=== PATIENT | female | born 1965 | race Caucasian/White ===

== ENCOUNTER 2021-02-21 08:03 | Inpatient (IN) | payer MEDICARE, MEDICAID ==
[2021-02-14 15:26] LABS: BASOPHILS % (AUTO) 0.4 % (0-1); EOSINOPHILS # (AUTO) 0.1 X10'3 (0-0.9); EOSINOPHILS % (AUTO) 1.7 % (0-6); LYMPHOCYTES # (AUTO) 2.4 X10'3 (1.1-4.8); LYMPHOCYTES % (AUTO) 29.6 % (21-51); MEAN CORPUSCULAR HEMOGLOBIN 28.5 PG (27.0-31.0); MEAN CORPUSCULAR HGB CONC 32.8 g/dL (33.0-36.5); MEAN CORPUSCULAR VOLUME 86.8 FL (78-98); MEAN PLATELET VOLUME 8.2 FL (7.4-10.4); MONOCYTES # (AUTO) 0.3 X10'3 (0-0.9); MONOCYTES % (AUTO) 3.8 % (2-12); NEUTROPHILS # (AUTO) 5.3 X10'3 (1.8-7.7); NEUTROPHILS % (AUTO) 64.5 % (42-75); PRE OP HEMATOCRIT 41.3 % (35.0-45.0); PRE OP HEMOGLOBIN 13.6 g/dL (12.0-16.0); PRE OP PLATELET COUNT 245 X10'3 (140-440); RED BLOOD COUNT 4.76 X10'6 (4.20-5.60); RED CELL DISTRIBUTION WIDTH 15.2 % (11.5-14.5)
[2021-02-14 15:36] LABS: CLARITY,URINE SLIGHTLY CLOUDY (Clear); GLUCOSE, URINE NEGATIVE (Neg); KETONES,URINE NEGATIVE (Neg); LEUKOCYTE ESTERASE ,URINE NEGATIVE (Neg); NITRITES, URINE NEGATIVE (Neg); OCCULT BLOOD,URINE TRACE-LYSED (Neg); PH,URINE 5.5 (4.8-8.0); PROTEIN,URINE TRACE mg/dl (Neg); UROBILINOGEN,URINE 0.2 E.U/dL (0.2-1.0)
[2021-02-14 15:39] LABS: COLOR,URINE DARK YELLOW (Yellow); UA COLLECTION TYPE CLN CATCH MIDSTREAM
[2021-02-14 15:45] LABS: BACTERIA,URINE FEW /HPF (Neg); HYALINE CASTS >30 /LPF (NEGATIVE); MUCUS STRANDS MANY /LPF (Neg); RBC,URINE 0-2 /HPF (0-2); SQUAMOUS EPITHELIAL CELL,UR MODERATE /LPF (FEW); WBC,URINE 0-4 /HPF (0-4)
[2021-02-14 16:08] LABS: ALBUMIN 3.6 G/DL (3.4-5.0); ALBUMIN/GLOBULIN RATIO 0.8 (1.1-1.5); ALKALINE PHOSPHATASE 100 IU/L (46-116); BLOOD UREA NITROGEN 26 MG/DL (7-18); BUN/CREATININE RATIO 24.8 (6.6-38.0); CALCIUM 9.4 MG/DL (8.5-10.1); CHLORIDE 105 MMOL/L (99-107); CREATININE 1.05 MG/DL (0.40-0.90); PRE OP ALT 41 U/L (30-65); PRE OP ANION GAP 10 (8-16); PRE OP AST 24 U/L (10-37); PRE OP BILIRUB, TOTAL 0.3 MG/DL (0.0-1.0); PRE OP GLUCOSE 119 MG/DL (70-104); PRE OP POTASSIUM 3.9 MMOL/L (3.4-5.1); PRE OP SODIUM 145 MMOL/L (135-145); TOTAL CARBON DIOXIDE 30.4 MMOL/L (24-32); eGFR 55 ML/MIN
[~2021-02-21] VITALS: Ht 160 cm; Wt 90.7 kg
[2021-02-21] VITALS (18 sets, daily range): BP systolic 82–138; BP diastolic 43–85
[~2021-02-21 08:03] MED LIST: ACET-1131 PO; ASPI-1475 PO; BACL20TA PO; CLINDAMYCIN/D5W 900mg/50ml 50 ML IV ONE; DOCUMENT DATE & TIME OF BETA-BLOCKER PO ONE; FLUT16SP2 BOTHNARES; METO50TA17 PO; VITAMIN D3 PO; [UNRECOGNIZED DRUG - OTHER] PO; albuterol 2.5 MG/3 ML nebule NEB ONE; cefazolin/dext.iso 2gm/100ml 100 ML IV ONE; famotidine 20mg tablet PO ONE; ringers solution, lacted 1,000 ML IV SCH; vancomycin 1,500 MG in NS 300ml IV soln IV ONE
[2021-02-21] MEDS ORDERED: fentaNYL/PF 50MCG/1 ML 2ML syringe IV ONE (08:50)
[2021-02-21] MEDS ORDERED: ringers solution, lacted 1,000 ML IV SCH (08:50)
[2021-02-21] MEDS ORDERED: meperidine/PF 25mg/ml syringe IV PRN ×3 (08:50)
[2021-02-21] MEDS ORDERED: proCHLORperazine 10 MG/2 ml inj IV PRN (08:50)
[2021-02-21] MEDS ORDERED: ondansetron/PF 4mg/2ml inj IV PRN (08:50)
[2021-02-21] MEDS ORDERED: bacitracin 15gm ointment TP ONE (09:48)
[2021-02-21] MEDS ORDERED: MIDAZolam 1 MG/ML 5ML VIAL ONE (10:02)
[2021-02-21] MEDS ORDERED: fentaNYL /PF 50mcg/ml 5ml ampule ONE (10:02)
[2021-02-21] MEDS ORDERED: propofol inj 20 ML IV ONE (10:05)
[2021-02-21] MEDS ORDERED: ROPIVAcaine 0.5% (5mg/ml) 30ml vial ONE (10:05)
[2021-02-21] MEDS ORDERED: dexamethasone sod phosphate 4mg/ml inj. ONE (10:08)
[2021-02-21] MEDS ORDERED: LIDOcaine 1%/PF 5ML 10 MG/ML VIAL ONE (10:27)
[2021-02-21] MEDS ORDERED: sevoflurane 250ml liquid IH ONE (10:27)
[2021-02-21] MEDS ORDERED: BUPIVAcaine/PF 7.5mg/ml (0.75%) 10ml vial ONE (11:17)
[2021-02-21] MEDS ORDERED: ROPIVAcaine 0.2% (10 MG/5 ML) BOLUS INJECTION POPLITEAL PRN (12:05)
[2021-02-21] MEDS ORDERED: ondansetron/PF 4mg/2ml inj ONE (15:09)
[2021-02-21] MEDS ORDERED: meperidine/PF 25mg/ml syringe ONE (15:10)
[2021-02-21] MEDS ORDERED: acetaminophen 1,000mg/100ml IV 100 ML IV ONE (15:11)
[2021-02-21] MEDS ORDERED: oxyCODONE/APAP 5-325mg tablet PO PRN (15:25)
[2021-02-21] MEDS ORDERED: acetaminophen 325mg tablet PO PRN (15:55)
--- NOTE | 2021-02-21 16:18 | NUR ---
Received from OR via ORTHO BED WITH MARGUERITE , accompanied by Anesthesiologist ROSALIND and report given by Anesthesiolgist. PATIENT WITH SPLINT TO RIGHT LE THAT IS CDI. TOES PWD WITH + CAP REFILL ON TOES. NO DRAINAGE PRESENT. GATCHED FOOT OF BED UPON ARRIVAL AND DONNED ON Q PAIN SYSTEM TO NERVE BLOCK SITE ON RIGHT LE. 20G PIV IN LEFT UE RUNNING LR AT 100. ECKERT CATHETER PRESENT WITH 8FRENCH CATHETER IN. I SECURED LEG CHRISTINA FOR FC SYSTEM. 10L MASK ON WITH 100% SATURATIONS. Addendum: 02/21/21 at 1636 by Thuan Ortega RN, RN Amended: Links added.
[2021-02-21] MEDS: ROPIVAcaine 0.2%/PF PUMP/bolus 545 ML POPLITEAL SCH (16:37)
[2021-02-21] MEDS ORDERED: potassium Cl 20 mEq SR tablet PO PRN ×2 (16:55)
[2021-02-21] MEDS ORDERED: magnesium Cl slow-release 64mg tablet PO PRN (16:55)
[2021-02-21] MEDS ORDERED: potassium Cl 40MEQ/1/2NS 520ml 520 ML IV PRN (16:55)
[2021-02-21] MEDS ORDERED: magnesium 4gm in 100ml NS 100 ML IV PRN (16:55)
--- NOTE | 2021-02-21 17:19 | NUR ---
Patient in room PAS IN 900. I have received report from Thuan GUTIERREZ and had the opportunity to ask questions and assume patient care.
--- NOTE | 2021-02-21 17:28 | NUR ---
PATIENT HAS MET ALL CRITERIA FOR TRANSFER TO THE SURGICAL/[facility]/PCU/ORTHO/ICU FLOOR. VSS. DRESSINGS INTACT. BED LOW, CALL LIGHT PRESENT AND 3 RAILS UP. RN PRESENT TO ACCEPT CARE OF PATIENT AND REPORT HAS BEEN CALLED. ALL QUESTIONS ANSWERED TO ACCEPTING RN. ENCOURAGED BRENDA LÓPEZ TO USE TABS ALARM. CONFIRMED WITH JORDY GUTIERREZ THAT THERE ARE NO PATIENT BELONGINGS OVER ON PAS UNIT. BRENDA LÓPEZ PRESENT TO ASSESS PATIENT- SPLINT TO RIGH TLE STILL CDI. _ CAP REFILL TO TOES. NO DRAINAGE PRESENT ON DRESSING. ECKERT CATHETER PRESENT WITH CLEAR YELLOW DRAINAGE. APPROX 250CC FROM RR IN [facility] FOR DURATION IN RR. PATIENT. Addendum: 02/21/21 at 1744 by Thuan Santiago - BRENDA RN Amended: Links added.
[2021-02-21] MEDS ORDERED: normal saline 1000ml 1,000 ML IVB ONE (18:20)
--- NOTE | 2021-02-21 18:30 | NUR ---
Problems reprioritized. Patient report given, questions answered & plan of care reviewed with Ruba GUTIERREZ.
--- NOTE | 2021-02-21 18:30 | NUR ---
Patient in room ORTHO 4013. I have received report from BRENDA Valderrama and had the opportunity to ask questions and assume patient care.
[2021-02-21] MEDS: normal saline 1000ml 1,000 ML IV SCH (19:22)
[2021-02-21] MEDS: K and/or MAG REPLACEMENT MC SCH (20:00)
[2021-02-21] MEDS: baclofen 10mg tablet PO SCH (20:06)
[2021-02-21] MEDS: metoprolol tartrate 50mg tablet PO SCH (20:07)
--- NOTE | 2021-02-21 21:34 | NUR ---
Call out to Dr. Eldridge regarding the antibiotic orders, need to change them to other antibiotic choice per RX.
[2021-02-21] MEDS: CLINDAMYCIN/D5W 900mg/50ml 50 ML IV SCH (22:08)
[2021-02-22] VITALS (7 sets, daily range): BP systolic 84–145; BP diastolic 36–70
[2021-02-22] MEDS: normal saline 1000ml 1,000 ML IV SCH ×2 (05:43→15:36)
[2021-02-22] MEDS: CLINDAMYCIN/D5W 900mg/50ml 50 ML IV SCH (05:44)
--- NOTE | 2021-02-22 06:26 | NUR ---
Problems reprioritized. Patient report given, questions answered & plan of care reviewed with BRENDA Zamora.
[2021-02-22 07:25] LABS: BASOPHILS % (AUTO) 0 % (0-1); EOSINOPHILS % (AUTO) 0 % (0-6); HEMATOCRIT 33.4 % (35.0-45.0); HEMOGLOBIN 10.8 g/dl (12.0-16.0); LYMPHOCYTES # (AUTO) 1.3 X10'3 (1.1-4.8); LYMPHOCYTES % (AUTO) 9.4 % (21-51); MEAN CORPUSCULAR HEMOGLOBIN 28.4 PG (27.0-31.0); MEAN CORPUSCULAR HGB CONC 32.2 g/dL (33.0-36.5); MEAN CORPUSCULAR VOLUME 88.2 FL (78-98); MEAN PLATELET VOLUME 8.7 FL (7.4-10.4); MONOCYTES # (AUTO) 0.8 X10'3 (0-0.9); MONOCYTES % (AUTO) 5.7 % (2-12); NEUTROPHILS # (AUTO) 11.3 X10'3 (1.8-7.7); NEUTROPHILS % (AUTO) 84.9 % (42-75); PLATELET COUNT 181 X10'3 (140-440); RED BLOOD COUNT 3.78 X10'6 (4.20-5.60); RED CELL DISTRIBUTION WIDTH 15.2 % (11.5-14.5); WHITE BLOOD COUNT 13.3 X10'3 (4.5-11.0)
[2021-02-22] MEDS: metoprolol tartrate 50mg tablet PO SCH (07:38)
[2021-02-22] MEDS: fluticasone nasal spray 16GM bottle NS SCH (07:38)
[2021-02-22] MEDS: baclofen 10mg tablet PO SCH ×2 (07:38→20:24)
[2021-02-22] MEDS: aspirin 81mg tablet.DR PO SCH (07:38)
[2021-02-22 07:58] LABS: ALANINE AMINOTRANSFERASE 24 U/L (12-78); ALBUMIN 2.6 G/DL (3.4-5.0); ALBUMIN/GLOBULIN RATIO 0.8 (1.1-1.5); ALKALINE PHOSPHATASE 66 IU/L (46-116); ANION GAP 6 (8-16); ASPARTATE AMINO TRANSFERASE 32 U/L (10-37); BILIRUBIN,TOTAL 0.3 MG/DL (0.1-1.0); BLOOD UREA NITROGEN 12 MG/DL (7-18); BUN/CREATININE RATIO 17.1 (6.6-38.0); CALCIUM 7.9 MG/DL (8.5-10.1); CHLORIDE 109 MMOL/L (99-107); GLUCOSE 134 MG/DL (70-104); MAGNESIUM 1.8 MG/DL (1.5-2.4); POTASSIUM 4.2 MMOL/L (3.5-5.1); SODIUM 143 MMOL/L (135-145); TOTAL CARBON DIOXIDE 28.2 MMOL/L (24-32); TOTAL PROTEIN 5.9 G/DL (6.4-8.2); eGFR 87 ML/MIN
[2021-02-22] MEDS: K and/or MAG REPLACEMENT MC SCH ×2 (08:00→20:00)
[2021-02-22] MEDS: oxyCODONE/APAP 5-325mg tablet PO PRN ×2 (15:37→20:33)
[2021-02-22] MEDS ORDERED: morphine 2 MG/ML inj. syringe IV PRN (17:25)
[2021-02-22] MEDS: heparin, porcine 5000 units/ml vial SQ SCH (20:25)
--- NOTE | 2021-02-22 21:41 | NUR ---
Patient in room ORTHO 4013. I have received report from ZELDA GUTEIRREZ and had the opportunity to ask questions and assume patient care.
[2021-02-22] MEDS: clindamycin 600mg/D5W 50ml 50 ML IV SCH (21:45)
[2021-02-22] MEDS ORDERED: CLINDAMYCIN/D5W 900mg/50ml 50 ML IV SCH (22:00)
[2021-02-23] MEDS: HYDROmorphone inj. 0.5 MG/0.5 ML DISP.SYRIN IV PRN ×3 (00:29→20:38)
--- NOTE | 2021-02-23 01:50 | NUR ---
PATIENT MEDICATED EARLY IN SHIFT WITH PERCOCET (2tabs) ORDERED FOR PAIN IN RLE. HAD ASSISTED PATIENT UP TO BSC AND AFTER GETTING BACK TO BED PAIN WAS 10/10. GAVE MEDS ORDERED AND PATIENT COULD BE HEARD CRYING AND MOANING. ATTEMPTED TO TEACH BREACHING FOR RELAXATION, ICE PLACED BEHIND THE KNEE AND ON TOP OF SPLINT. RC'D ORDERS FROM HOSPITALIST TO ADMINISTER DILAUDID .2MG Q2 HRS PRN FOR PAIN NOT CONTROLLED BY PO PAIN MEDS. MADE PATIENT AWARE WE HAD DILAUDID TO HELP WITH PAIN CONTROL AND HAD TO WAKE HER UP. CHECKED ON HER OFTEN AND SEEMED TO BE RESTING WITHOUT ANY DISTRESS NOTED. NO LONGER CRYING AND MOANING. PATIENT WOKE UP LATER AND WAS FEELING LIKE I HAD IGNORED HER AND WAS "MAD AT HER FOR NOT USING THE BEDPAN". I EXPLAINED TO HER I WAS NOT ANGRY WITH HER, AND HAD BEEN IN TO CHECK ON HER OFTEN BUT SHE MAINTAINED THAT SHE WAS AWAKE THE WHOLE TIME AND I HAD WITH HELD HER PAIN MEDICATION. I SPOKE TO MY BORING INSPECTOR AND ASKED HER TO INTERVENE WITH THIS SITUATION THE PATIENT WAS VERY EMOTIONAL AND NOT WILLING TO LISTEN TO ANYTHING I HAD TO SAY AND I WAS WANTING TO AVOID ESCALATION OF THE SITUATION. CHARGE ADMINISTERED DILAUDID TO PATIENT AND MED HAS BEEN EFFECTIVE. PATIENT RESTING COMFORTABLY, NO DISTRESS NOTED.
[2021-02-23] MEDS: clindamycin 600mg/D5W 50ml 50 ML IV SCH ×4 (02:39→20:32)
[2021-02-23] MEDS: oxyCODONE/APAP 5-325mg tablet PO PRN ×5 (02:46→21:44)
[2021-02-23] MEDS: normal saline 1000ml 1,000 ML IV SCH ×3 (03:33→20:37)
[2021-02-23 06:00] VITALS: BP 125/77
--- NOTE | 2021-02-23 06:21 | NUR ---
Problems reprioritized. Patient report given, questions answered & plan of care reviewed with DEB GUTIERREZ.
[2021-02-23] MEDS: baclofen 10mg tablet PO SCH ×2 (07:01→20:32)
[2021-02-23 07:17] LABS: BASOPHILS % (AUTO) 0.3 % (0-1); EOSINOPHILS # (AUTO) 0.1 X10'3 (0-0.9); EOSINOPHILS % (AUTO) 0.6 % (0-6); HEMATOCRIT 29.6 % (35.0-45.0); HEMOGLOBIN 9.9 g/dl (12.0-16.0); LYMPHOCYTES % (AUTO) 33.5 % (21-51); MEAN CORPUSCULAR HEMOGLOBIN 29.6 PG (27.0-31.0); MEAN CORPUSCULAR HGB CONC 33.3 g/dL (33.0-36.5); MEAN CORPUSCULAR VOLUME 88.8 FL (78-98); MEAN PLATELET VOLUME 8.6 FL (7.4-10.4); MONOCYTES # (AUTO) 0.7 X10'3 (0-0.9); MONOCYTES % (AUTO) 8.3 % (2-12); NEUTROPHILS # (AUTO) 5.1 X10'3 (1.8-7.7); NEUTROPHILS % (AUTO) 57.3 % (42-75); PLATELET COUNT 153 X10'3 (140-440); RED BLOOD COUNT 3.33 X10'6 (4.20-5.60); RED CELL DISTRIBUTION WIDTH 15.5 % (11.5-14.5); WHITE BLOOD COUNT 8.9 X10'3 (4.5-11.0)
[2021-02-23 07:27] LABS: ALANINE AMINOTRANSFERASE 46 U/L (12-78); ALBUMIN 2.5 G/DL (3.4-5.0); ALBUMIN/GLOBULIN RATIO 0.8 (1.1-1.5); ALKALINE PHOSPHATASE 73 IU/L (46-116); ANION GAP 8 (8-16); ASPARTATE AMINO TRANSFERASE 64 U/L (10-37); BLOOD UREA NITROGEN 9 MG/DL (7-18); BUN/CREATININE RATIO 15.5 (6.6-38.0); CALCIUM 7.3 MG/DL (8.5-10.1); CHLORIDE 110 MMOL/L (99-107); CREATININE 0.58 MG/DL (0.40-0.90); GLUCOSE 107 MG/DL (70-104); MAGNESIUM 1.8 MG/DL (1.5-2.4); PHOSPHORUS 2.5 MG/DL (2.3-4.5); POTASSIUM 3.6 MMOL/L (3.5-5.1); SODIUM 145 MMOL/L (135-145); TOTAL CARBON DIOXIDE 27.4 MMOL/L (24-32); TOTAL PROTEIN 5.7 G/DL (6.4-8.2); eGFR > 90 ML/MIN
[2021-02-23] MEDS: K and/or MAG REPLACEMENT MC SCH ×2 (08:00→20:00)
[2021-02-23] MEDS: fluticasone nasal spray 16GM bottle NS SCH (08:00)
[2021-02-23 08:06] LABS: BILIRUBIN,TOTAL 0.2 MG/DL (0.1-1.0)
[2021-02-23] MEDS ORDERED: aspirin 325mg tablet PO SCH (08:30)
[2021-02-23] MEDS: aspirin 81mg tablet.DR PO SCH (08:40)
[2021-02-23] MEDS: heparin, porcine 5000 units/ml vial SQ SCH ×2 (08:41→20:32)
[2021-02-23] MEDS: ROPIVAcaine 0.2%/PF PUMP/bolus 545 ML POPLITEAL SCH (15:40)
--- NOTE | 2021-02-23 16:10 | NUR ---
PAGER ID: [phone] MESSAGE: [phone] John wants to go home today. DEB [id number]
--- NOTE | 2021-02-23 17:16 | NUR ---
PAGER ID: [phone] MESSAGE: [phone] John is leaving AMA DEB [id number] Patient is complaining that she has been getting herself to the bedside commode. Yes, She was observed with standby assist this AM and deemed capable & safe. Patient has NOT used her call light to request assist to commode. She has called multiple times if her room mates IV alarmed and for pain medication. I have walked in a couple of times to check on her and found her getting to or from commode and assisted her. Patient was given a powder pack, not ice, for surgical leg. She was educated on the risk of leaks and getting her surgical dressing wet which has high risk for causing infection. She was not happy about this policy. I have made every attempt in my scope of practice to keep this patient educated, safe, and comfortable.
--- NOTE | 2021-02-23 17:31 | NUR ---
when i had answered her light she never asked to get up out of bed to go to the commode, she only asked for ice, pain medication or to speak with her doctor
[2021-02-23] MEDS: lactobacillus rhamnosus 10,000 MMU CELLS/CAPSULE PO SCH (20:32)
[2021-02-23 22:00] VITALS: BP 167/96
[2021-02-24] MEDS: clindamycin 600mg/D5W 50ml 50 ML IV SCH ×2 (02:52→08:26)
[2021-02-24] MEDS: oxyCODONE/APAP 5-325mg tablet PO PRN ×3 (03:30→08:24)
--- NOTE | 2021-02-24 04:23 | NUR ---
SHIFT SUMMARY: PATIENT HAS BEEN USING HER CALL LIGHT APPROP. TONIGHT IN ASKING FOR ASSISTANCE TO BSC. PIVOTS WELL AND MAINTAINS NWB STATUS. MEDICATED THROUGH THE NIGHT FOR RLE PAIN. ICE AND POWDER PAKS USED THROUGHOUT THE NIGHT. HAVE RC'D NUMEROUS CALLS FROM TELE REGARDING PATIENTS O2 SATS. NOTED WHEN PATIENT SLEEPING SHE IS APNEC. MAINTAINS SATS BEST WHEN O2 IS IN HER MOUTH. EXPLAINED TO PATIENT SHE NEEDS TO FOLLOW UP WITH HER PMD REGARDING POSIBLE IN PROCESS INSPECTOR APNEA. STATED SHE WOULD FOLLOWUP ON THIS. REPORTED TO ME, PATIENT HAD STATED ON EARLY SHIFT ABOUT LEAVING THE HOSPITAL AMA, BUT NO MENTION WAS MADE OF THIS TONIGHT. PATIENT HAS BEEN CALM AND FOLLOWING INSTRUCTIONS WELL. MAINTAINED FOB UP AND GATCHED THROUGHOUT THE SHIFT.
[2021-02-24 06:00] VITALS: BP 107/60
--- NOTE | 2021-02-24 06:48 | NUR ---
Problems reprioritized. Patient report given, questions answered & plan of care reviewed with DACIA GUTIERREZ.
[2021-02-24 06:55] LABS: BASOPHILS % (AUTO) 0.3 % (0-1); EOSINOPHILS # (AUTO) 0.1 X10'3 (0-0.9); EOSINOPHILS % (AUTO) 1.7 % (0-6); HEMATOCRIT 32.7 % (35.0-45.0); HEMOGLOBIN 10.7 g/dl (12.0-16.0); LYMPHOCYTES # (AUTO) 2.3 X10'3 (1.1-4.8); LYMPHOCYTES % (AUTO) 29.4 % (21-51); MEAN CORPUSCULAR HEMOGLOBIN 28.8 PG (27.0-31.0); MEAN CORPUSCULAR HGB CONC 32.8 g/dL (33.0-36.5); MEAN CORPUSCULAR VOLUME 87.6 FL (78-98); MEAN PLATELET VOLUME 8.6 FL (7.4-10.4); MONOCYTES # (AUTO) 0.7 X10'3 (0-0.9); MONOCYTES % (AUTO) 8.6 % (2-12); NEUTROPHILS # (AUTO) 4.7 X10'3 (1.8-7.7); PLATELET COUNT 178 X10'3 (140-440); RED BLOOD COUNT 3.73 X10'6 (4.20-5.60); RED CELL DISTRIBUTION WIDTH 15.1 % (11.5-14.5); WHITE BLOOD COUNT 7.9 X10'3 (4.5-11.0)
[2021-02-24 07:02] LABS: ALANINE AMINOTRANSFERASE 38 U/L (12-78); ALBUMIN 2.7 G/DL (3.4-5.0); ALBUMIN/GLOBULIN RATIO 0.7 (1.1-1.5); ALKALINE PHOSPHATASE 78 IU/L (46-116); ANION GAP 7 (8-16); ASPARTATE AMINO TRANSFERASE 32 U/L (10-37); BILIRUBIN,TOTAL 0.2 MG/DL (0.1-1.0); BLOOD UREA NITROGEN 5 MG/DL (7-18); BUN/CREATININE RATIO 8.3 (6.6-38.0); CALCIUM 8.5 MG/DL (8.5-10.1); CHLORIDE 109 MMOL/L (99-107); GLUCOSE 109 MG/DL (70-104); MAGNESIUM 1.9 MG/DL (1.5-2.4); PHOSPHORUS 3.2 MG/DL (2.3-4.5); POTASSIUM 3.6 MMOL/L (3.5-5.1); SODIUM 146 MMOL/L (135-145); TOTAL CARBON DIOXIDE 30.1 MMOL/L (24-32); TOTAL PROTEIN 6.4 G/DL (6.4-8.2); eGFR > 90 ML/MIN
--- NOTE | 2021-02-24 07:36 | NUR ---
Medications not assessed by NOC shift.
[2021-02-24] MEDS: K and/or MAG REPLACEMENT MC SCH (07:41)
[2021-02-24] MEDS: fluticasone nasal spray 16GM bottle NS SCH (08:00)
[2021-02-24] MEDS: aspirin 81mg tablet.DR PO SCH (08:24)
[2021-02-24] MEDS: lactobacillus rhamnosus 10,000 MMU CELLS/CAPSULE PO SCH (08:24)
[2021-02-24] MEDS: baclofen 10mg tablet PO SCH (08:25)
[2021-02-24] MEDS: heparin, porcine 5000 units/ml vial SQ SCH (08:26)
[2021-02-24 10:50] VITALS: BP 135/73
[2021-02-24] MEDS ORDERED: METO-395 PO (11:21)
[2021-02-24] MEDS ORDERED: CLIN-91 PO (11:21)
[2021-02-24] MEDS ORDERED: LACT1CAP26 PO (11:21)
--- NOTE | 2021-02-24 13:24 | NUR ---
Patient discharged on paper, all education completed. Patient with IS to go home with, education completed. All verbal acknowledgement completed by patient. Patient had the opportunity to ask question concerning discharge. ON Q information completed. Patient is aware of how to discontinue the OnQ and verbally explains the process of doing so. Patient in WC sitting in the hallway at her request, she states that she is sick to "this room". Cold packs x2 are included in her belongings and are being sent home. IV discontinued. VSS, A&Ox4. Patient aware of next scheduled doses of all medications. Patient aware of medications to be picked up at pharmacy and is aware of the dosage change for her Metoprol with verbal acknowledgment to education.
== END 2021-02-24 13:40 | disposition home health service (06) | DRG 469 ==
LOC: UNDOADMIN 08:03 → PAS IN 08:03 → EDSTATUS 11:00 → PAS IN 15:21 → ORTHO 4S 17:34 → PAS IN 17:34
PROVIDERS: ADMIT Podiatrist Foot & Ankle Surgery; ATTEND Podiatrist Foot & Ankle Surgery
PROC: 0MQQ0ZZ Repair Right Ankle Bursa and Ligament, Open Approach (ICD-10-PCS; 2021-02-21)
PROC: 0L8N0ZZ Division of Right Lower Leg Tendon, Open Approach (ICD-10-PCS; 2021-02-21)
PROC: 0SPF0JZ Removal of Synthetic Substitute from Right Ankle Joint, Open Approach (ICD-10-PCS; 2021-02-21)
PROC: 0SRF0JZ Replacement of Right Ankle Joint with Synthetic Substitute, Open Approach (ICD-10-PCS; principal; 2021-02-21 10:27)
DX: M25.371 Other instability, right ankle (principal); I69.351 Hemiplegia and hemiparesis following cerebral infarction affecting right dominant side; M25.471 Effusion, right ankle; M19.071 Primary osteoarthritis, right ankle and foot; D64.9 Anemia, unspecified; G89.29 Other chronic pain; I10 Essential (primary) hypertension; M19.90 Unspecified osteoarthritis, unspecified site; Z20.822 Contact with and (suspected) exposure to COVID-19; I95.9 Hypotension, unspecified; Q66.11 Congenital talipes calcaneovarus, right foot; Z88.8 Allergy status to other drugs, medicaments and biological substances; Z88.1 Allergy status to other antibiotic agents; Z88.6 Allergy status to analgesic agent
CPT/HCPCS: 36415; 71046; 73620; 76000; 80053; 81001; 82948; 83735; 84100; 85025; 87081; 93005; 97110; 97116; 97161; 97530; G0378; J0131; J1100; J1170; J1644; J2175; J2250; J2270; J2405; J2704; J2795; J3010; J3370; J3490; J7030; J7040; J7120; U0003